=== PATIENT | male | born 1990 | race African-American/Black ===

== ENCOUNTER 2022-02-26 09:22 | Emergency (ER) | payer MEDICAID ==
[~2022-02-26] VITALS: Ht 182.9 cm; Wt 87.0 kg
[2022-02-26 09:30] VITALS: BP 143/89
[2022-02-26] MEDS ORDERED: TETRACAINE 0.5% OPHTH DROPS 4ML BOTHEYE ONE (10:15)
[2022-02-26] MEDS ORDERED: FLUORESCEIN SODIUM 1MG/STRIP BOTHEYE ONE (10:15)
[2022-02-26] MEDS ORDERED: TETANUS, DIPHTHERIA, PERTUSSIS VAC/PF 0.5ML (>10YR OLD) IM ONE (10:45)
[2022-02-26] MEDS ORDERED: AMOXICILLIN/POTASSIUM CLAVULANATE 875/125MG TAB PO ONE (10:45)
[2022-02-26] MEDS ORDERED: ACET-2708 MT (10:45)
[2022-02-26] MEDS ORDERED: AMOX1TAB16 MT (10:45)
[2022-02-26] MEDS ORDERED: ACETAMINOPHEN 325MG TABLET PO ONE (10:45)
[2022-02-26] MEDS ORDERED: GUAI600T26 MT (10:45)
== END 2022-02-26 11:00 | disposition home or self-care (01) ==
LOC: ER 10:26
DX: H72.91 Unspecified perforation of tympanic membrane, right ear (principal); E11.9 Type 2 diabetes mellitus without complications; Z98.890 Other specified postprocedural states
CPT/HCPCS: 90471; 90715; 99283